=== PATIENT | male | born 1960 | race Caucasian/White ===

== ENCOUNTER 2017-07-22 13:33 | Emergency (ER) | payer OTHER ==
[~2017-07-22] VITALS: Ht 182.9 cm; Wt 95.3 kg
--- NOTE | 2017-07-22 14:36 | ED GI/GU/ABDOMINAL COMPLAINT ---
History of Present Illness General Chief Complaint: Low Back Pain/Injury Stated Complaint: LBP ? KIDNEY STONES Source: patient, old records Exam Limitations: no limitations Vital Signs & Intake/Output Vital Signs & Intake/Output Vital Signs Date Time Temp Pulse Resp B/P B/P Pulse O2 O2 Flow FiO2 Mean Ox Delivery Rate 07/22 1717 98.2 70 16 119/83 100 Room Air 07/22 1516 Room Air 07/22 1408 98.9 94 18 112/70 97 Room Air Allergies Coded Allergies: No Known Allergies (07/22/17) Reconcile Medications Amoxicillin 500 MG TABLET 1 TAB PO TID BRONCHITIS Ondansetron (Zofran Odt) 4 MG TAB.RAPDIS 1 TAB SL TID PRN NAUSEA Oxycodone HCl/Acetaminophen (Percocet 5-325 MG Tablet) 5 MG-325 MG TABLET 1-2 TAB PO Q6P PRN PAIN Tamsulosin HCl (Flomax) 0.4 MG CAP.ER.24H 1 CAP PO DAILY KIDNEY STONE Triage Note: RECEIVED 56 YO NALE WITH HX OF KIDNEY STONES, C/O LEFT FLANK AREA PAIN, STARTED TUESDAY NIGHT. PAIN CAME BACK INTENSLY THIS AM. PT MAY HAVE URINATED AT LEAST 2 STONES, ONE TODAY AND ONE TUESDAY. Triage Nurses Notes Reviewed? yes HPI: On Tuesday patient developed left upper quadrant pain that radiated to his left flank. The pain was severe and intense. Pain similar to a prior episode of kidney stones. Patient felt slightly nauseous. Patient states that since then the pain has improved however has not gone away entirely. Patient is no longer nauseous. Patient has not seen a urologist in the past few years. Patient denies any chest pain or shortness of breath. The pain is cramping in nature. There are no aggravating or mitigating factors. The pain was 8 out of 10 but is currently a 4 out of 10. Past History Travel History Traveled to [place] past 21 day No Medical History Any Pertinent Medical History? see below for history Neurological: NONE EENT: NONE Cardiovascular: NONE Respiratory: NONE Gastrointestinal: NONE Hepatic: KIDNEY STONES Renal: nephrolithiasis Musculoskeletal: NONE Psychiatric: NONE Endocrine: NONE Blood Disorders: NONE Cancer(s): NONE Surgical History Surgical History: non-contributory Psychosocial History What is your primary language Syrian Tobacco Use: Never used ETOH Use: denies use Illicit Drug Use: denies illicit drug use Family History Hx Contributory? No Review of Systems Review of Systems Constitutional: Reports: no symptoms. EENTM: Reports: no symptoms. Respiratory: Reports: no symptoms. Cardiovascular: Reports: no symptoms. GI: Reports: see HPI, abdominal pain. Genitourinary: Reports: no symptoms. Musculoskeletal: Reports: see HPI, back pain. Skin: Reports: no symptoms. Neurological/Psychological: Reports: no symptoms. Hematologic/Endocrine: Reports: no symptoms. Immunologic/Allergic: Reports: no symptoms. All Other Systems: Reviewed and Negative Physical Exam Physical Exam General Appearance: well developed/nourished, alert, awake, mild distress Head: atraumatic, normal appearance Eyes: Bilateral: PERRL, EOMI. Ears, Nose, Throat, Mouth: hearing grossly normal, moist mucous membrane Neck: normal inspection, supple, full range of motion Respiratory: normal breath sounds, chest non-tender, no respiratory distress, lungs clear Cardiovascular: regular rate/rhythm, normal peripheral pulses Gastrointestinal: normal bowel sounds, soft, non-tender, no organomegaly Back: normal inspection, normal range of motion, NO CVA TENDERNESS Extremities: normal range of motion Neurologic/Psych: no motor/sensory deficits, awake, alert, oriented x 3, normal mood/affect Skin: intact, normal color, warm/dry Core Measures ACS in differential dx? No Sepsis Present: No Sepsis Focused Exam Completed? No Progress Differential Diagnosis: pancreatitis, ureterolithiasis, urinary retention, UTI/ pyelo Plan of Care: Orders Procedure Date/time Status LIPASE 07/22 1436 Complete COMPREHENSIVE METABOLIC PANEL 07/22 1436 Complete CBC WITHOUT DIFFERENTIAL 07/22 1436 Complete AMYLASE 07/22 1436 Complete URINALYSIS 07/22 1414 Complete Laboratory Tests 07/22/17 1526: Anion Gap 10, Estimated GFR > 60, BUN/Creatinine Ratio 18.9, Glucose 100 H, Calcium 9.0, Total Bilirubin 0.6, AST 17, ALT 31, Alkaline Phosphatase 82, Total Protein 6.8, Albumin 3.6, Globulin 3.2, Albumin/Globulin Ratio 1.1, Amylase 80, Lipase 82, CBC w Diff NO MAN DIFF REQ, RBC 4.45 L, MCV 86.7, MCH 29.5, MCHC 34.1, RDW 15.0 H, MPV 7.5, Gran % 65.8, Lymphocytes % 20.5, Monocytes % 8.9, Eosinophils % 4.4, Basophils % 0.4, Absolute Granulocytes 6.6 H, Absolute Lymphocytes 2.1, Absolute Monocytes 0.9 H, Absolute Eosinophils 0.4, Absolute Basophils 0 07/22/17 1417: Urine Color YEL, Urine Clarity CLEAR, Urine pH 6.0, Ur Specific [place] 1.025, Urine Protein NEG, Urine Ketones NEG, Urine Nitrite NEG, Urine Bilirubin NEG, Urine Urobilinogen 0.2, Ur Leukocyte Esterase NEG, Ur Microscopic SEDIMENT EXAMINED, Urine RBC 10-15 H, Urine WBC RARE, Urine Mucus MOD H, Urine Hemoglobin MOD H, Urine Glucose NEG Diagnostic Imaging: Viewed by Me: CT Scan. Discussed w/RAD: CT Scan. Radiology Impression: PATIENT: GIRISH AGUIRRE PRESENT AGE: 56 PATIENT ACCOUNT NO: [id number] : 62 LOCATION: [facility] ORDERING PHYSICIAN: Rene Adames MD SERVICE DATE: 07/22/17 EXAM TYPE: CAT - CT ABD & PELVIS W/O IV CONTRAS EXAMINATION: CT ABDOMEN AND PELVIS WITHOUT CONTRAST CLINICAL INFORMATION: Left flank pain COMPARISON: None TECHNIQUE: Multidetector volumetric imaging was performed from the superior aspect of the liver through the pubic symphysis. Sagittal and coronal reformatted images were obtained on the technologist's workstation. DLP: 544 mGy -cm FINDINGS: LUNG BASES: The visualized lung bases are clear. The visualized cardiac structures are unremarkable. There are prominent lymph nodes along the course of the distal esophagus. For instance, there is a short axis I.5 cm node seen on series 2 image 7. LIVER, GALLBLADDER, AND BILIARY TREE: The liver is normal in size, shape, and attenuation. No focal hepatic lesion or biliary ductal dilatation is present. The gallbladder is unremarkable with no evidence of radiopaque gallstones, gallbladder wall thickening, or obvious pericholecystic inflammatory changes. PANCREAS: Unremarkable. SPLEEN: Unremarkable. ADRENAL GLANDS: Unremarkable. KIDNEYS AND URETERS: The kidneys are normal in size, shape, and attenuation. Mild left hydronephrosis. There is a 0.3 cm proximal left ureteral calculus which is obstructing. The distal ureter is decompressed. There is no right-sided hydronephrosis. There is a right lower pole 0.7 cm calculus which is 8 cm from the posterior axillary line. This measures 1000 Hounsfield units. BLADDER: Unremarkable. GASTROINTESTINAL TRACT: The stomach is unremarkable. The small bowel is normal in caliber. There is no obstruction. No colonic wall thickening or inflammatory change. There is a moderate colonic stool burden. Diverticulosis of the descending and sigmoid colon without evidence of diverticulitis. No free air or free fluid. ABDOMINAL WALL: No significant hernia is appreciated. LYMPH NODES: As mentioned above, there are prominent lymph nodes in the chest along the course of the mid to distal esophagus. Retrocrural lymph node on the right measures 0.9 cm short axis , series 2 image 19. There is a portacaval node with short axis dimension of 0.9 cm. The remaining retroperitoneal and pelvic lymph nodes are within normal limits. VASCULAR: Unremarkable. PELVIC VISCERA: The prostate and seminal vesicles are unremarkable. OSSEOUS STRUCTURES: Degenerative changes at L5-S1. Pars defects with grade 1 anterolisthesis. Disc space narrowing with vacuum disc phenomenon. Additional vacuum disc phenomenon at L4-L5. IMPRESSION: 1. Mild left hydroureteronephrosis with a proximal left ureteral 0.3 cm calculus. 2. Nonobstructing right lower pole 0.7 cm calculus. 3. Lymphadenopathy in the chest along the course of the esophagus. This is nonspecific, but malignancy must be a consideration. No definite lymphadenopathy in abdomen/pelvis. Dedicated chest CT may be obtained to further evaluate the structures in the chest. This critical result was discussed with Rene Adames MD by telephone at 07/22/2017 3:17 PM and it was ascertained that the content and urgency of the report was understood at the time of direct communication. DICTATED BY: Kem Gray MD DATE/TIME DICTATED:07/22/171502 VEGETABLE FARM MANAGER:JUMA DATE/TIME TRANSCRIBED:07/22/171502 CONFIDENTIAL, DO NOT COPY WITHOUT APPROPRIATE AUTHORIZATION. <Electronically signed in Other Vendor System> SIGNED BY: Kem Gray MD 07/22/17 1520, PATIENT: GIRISH AGUIRRE PRESENT AGE: 56 PATIENT ACCOUNT NO: [id number] : 62 LOCATION: [facility] ORDERING PHYSICIAN: Rene Adames MD SERVICE DATE: 07/22/17-152 EXAM TYPE: CAT - CT CHEST W IV CONTRAST EXAMINATION: CT CHEST WITH CONTRAST CLINICAL INFORMATION: Follow-up abnormal exam. Follow-up lymphadenopathy. COMPARISON: Same day abdominal and pelvic CT. TECHNIQUE: Contiguous axial thin section helical images of the chest were performed following the administration of 95 mL of intravenous Optiray 320. The data set was reformatted in the coronal and sagittal planes and reviewed on an independent workstation. DLP: 396 mGy-cm. FINDINGS: The heart is of normal size. There is no pericardial effusion. There are multiple mediastinal lymph nodes. There is a superior left paratracheal lymph node on image 100/520 measuring approximately 3.4 x 2.5 cm. There is a right paratracheal lymph node on image 172 measuring 2.9 x 2.1 cm. There is a subcarinal lymph node on image 263 measuring approximately 5.1 x 2.6 cm. There are bilateral hilar lymph nodes. The largest right hilar lymph node is on image 239 measuring 2.3 x 1.9 cm. The largest left hilar lymph node measures 1.6 x 1.0 cm. Review of lung windows demonstrates that there are neither pleural effusions nor pneumothoraces. There are no consolidations. Within the right lower lobe on image 270, there is a 5 mm nodule. There is mild left apical scarring. Within the periphery of the left upper lobe on image 119, there is a 3 mm nodular density. Within the left lower lobe adjacent to the major fissure on image 262, there is an approximately 4 mm nodular density. The visualized upper abdomen demonstrates that the liver is of normal size and attenuation. Within the dome of the right lobe of the liver anteriorly on image 401, there is a 6 mm low- attenuation lesion which is too small to fully characterize. Within the dome of the left lobe of the liver on image 370, there is an 8mm low-attenuation focus which is too small to fully characterize. Within the inferior right lobe on image 503, there are 2 ill-defined low-attenuation lesions measuring approximately 9 mm an 11 mm respectively. Normal adrenal glands are identified. Bone windows: Neither sclerotic nor lytic bone lesions are identified. IMPRESSION: Multiple mediastinal and hilar lymph nodes. The appearance is nonspecific, though worrisome for neoplasm, such as lymphoma. Consider PET/CT for further tissue characterization. Bilateral subcentimeter nodules and nodular densities. The largest measures 5 mm within the right lower lobe. Nonspecific low-attenuation lesions within the liver. DICTATED BY: Denys Bustillos MD DATE/ TIME DICTATED:07/22/171629 VEGETABLE FARM MANAGER:JUMA DATE/TIME TRANSCRIBED: 07/22/171629 CONFIDENTIAL, DO NOT COPY WITHOUT APPROPRIATE AUTHORIZATION. < Electronically signed in Other Vendor System> SIGNED BY: Denys Bustillos MD 07/22/17 1646 Initial ED EKG: none Comments: Patient has been updated on CAT scan findings. Patient states that he has had sinus congestion and postnasal drip lately. Patient is requesting a prescription for amoxicillin. Patient will follow-up with his primary care physician regarding the CAT scan finding of lymphadenopathy and he promises to return for any concerns. Departure Departure Disposition: HOME OR SELF CARE Condition: Stable Clinical Impression Primary Impression: Kidney stone on left side Secondary Impressions: Lymphadenopathy Referrals: Albert CHARLES,Griselda Fajardo MD,Saba Conrteras III (PCP/Family) Additional Instructions: Follow-up with your primary care physician regarding the swollen lymph node in your chest. Take amoxicillin as prescribed. Take Percocet as needed for the pain. Take Flomax as directed. Take Zofran as needed for nausea. Follow up with Dr. Price from urology. Return if symptoms worsen or for any concerns. Departure Forms: Customer Survey General Discharge Information Prescriptions: Current Visit Scripts Amoxicillin 1 TAB PO TID #30 TAB Oxycodone HCl/Acetaminophen (Percocet 5-325 MG Tablet) 1-2 TAB PO Q6P PRN PAIN #20 TAB Tamsulosin HCl (Flomax) 1 CAP PO DAILY #14 CAP Ondansetron (Zofran Odt) 1 TAB SL TID PRN NAUSEA #10 TAB
--- NOTE | 2017-07-22 15:20 | CT SCAN REPORT ---
EXAMINATION: CT ABDOMEN AND PELVIS WITHOUT CONTRAST CLINICAL INFORMATION: Left flank pain COMPARISON: None TECHNIQUE: Multidetector volumetric imaging was performed from the superior aspect of the liver through the pubic symphysis. Sagittal and coronal reformatted images were obtained on the technologist's workstation. DLP: 544 mGy-cm FINDINGS: LUNG BASES: The visualized lung bases are clear. The visualized cardiac structures are unremarkable. There are prominent lymph nodes along the course of the distal esophagus. For instance, there is a short axis I.5 cm node seen on series 2 image 7. LIVER, GALLBLADDER, AND BILIARY TREE: The liver is normal in size, shape, and attenuation. No focal hepatic lesion or biliary ductal dilatation is present. The gallbladder is unremarkable with no evidence of radiopaque gallstones, gallbladder wall thickening, or obvious pericholecystic inflammatory changes. PANCREAS: Unremarkable. SPLEEN: Unremarkable. ADRENAL GLANDS: Unremarkable. KIDNEYS AND URETERS: The kidneys are normal in size, shape, and attenuation. Mild left hydronephrosis. There is a 0.3 cm proximal left ureteral calculus which is obstructing. The distal ureter is decompressed. There is no right-sided hydronephrosis. There is a right lower pole 0.7 cm calculus which is 8 cm from the posterior axillary line. This measures 1000 Hounsfield units. BLADDER: Unremarkable. GASTROINTESTINAL TRACT: The stomach is unremarkable. The small bowel is normal in caliber. There is no obstruction. No colonic wall thickening or inflammatory change. There is a moderate colonic stool burden. Diverticulosis of the descending and sigmoid colon without evidence of diverticulitis. No free air or free fluid. ABDOMINAL WALL: No significant hernia is appreciated. LYMPH NODES: As mentioned above, there are prominent lymph nodes in the chest along the course of the mid to distal esophagus. Retrocrural lymph node on the right measures 0.9 cm short axis, series 2 image 19. There is a portacaval node with short axis dimension of 0.9 cm. The remaining retroperitoneal and pelvic lymph nodes are within normal limits. VASCULAR: Unremarkable. PELVIC VISCERA: The prostate and seminal vesicles are unremarkable. OSSEOUS STRUCTURES: Degenerative changes at L5-S1. Pars defects with grade 1 anterolisthesis. Disc space narrowing with vacuum disc phenomenon. Additional vacuum disc phenomenon at L4-L5. IMPRESSION: 1. Mild left hydroureteronephrosis with a proximal left ureteral 0.3 cm calculus. 2. Nonobstructing right lower pole 0.7 cm calculus. 3. Lymphadenopathy in the chest along the course of the esophagus. This is nonspecific, but malignancy must be a consideration. No definite lymphadenopathy in abdomen/pelvis. Dedicated chest CT may be obtained to further evaluate the structures in the chest. This critical result was discussed with Rene Adames MD by telephone at 07/22/2017 3:17 PM and it was ascertained that the content and urgency of the report was understood at the time of direct communication.
[2017-07-22 16:01] LABS: ABSOLUTE BASOPHIL COUNT 0 /CUMM (0.0-0.2); ABSOLUTE EOSINOPHIL COUNT 0.4 /CUMM (0.0-0.7); ABSOLUTE GRANULOCYTE CT 6.6 /CUMM (1.4-6.5); ABSOLUTE LYMPH COUNT 2.1 /CUMM (1.2-3.4); ABSOLUTE MONOCYTE COUNT 0.9 /CUMM (0.10-0.60); BASOPHIL % 0.4 % (0.0-2.0); EOSINOPHIL % 4.4 % (0-5); GRANULOCYTE % 65.8 % (42.2-75.2); HEMATOCRIT 38.5 % (42-52); MEAN CORPUSCULAR HGB 29.5 PG (27.0-31.0); MEAN CORPUSCULAR HGB CONC 34.1 G/DL (33.0-37.0); MEAN CORPUSCULAR VOLUME 86.7 FL (80.0-94.0); MEAN PLATELET VOLUME 7.5 FL (7.4-10.4); PLATELET COUNT 265 /CUMM (130-400); RED BLOOD CELL CT 4.45 /CUMM (4.70-6.10); WHITE BLOOD CELL COUNT 10.1 /CUMM (4.8-10.8)
--- NOTE | 2017-07-22 16:46 | CT SCAN REPORT ---
EXAMINATION: CT CHEST WITH CONTRAST CLINICAL INFORMATION: Follow-up abnormal exam. Follow-up lymphadenopathy. COMPARISON: Same day abdominal and pelvic CT. TECHNIQUE: Contiguous axial thin section helical images of the chest were performed following the administration of 95 mL of intravenous Optiray 320. The data set was reformatted in the coronal and sagittal planes and reviewed on an independent workstation. DLP: 396 mGy-cm. FINDINGS: The heart is of normal size. There is no pericardial effusion. There are multiple mediastinal lymph nodes. There is a superior left paratracheal lymph node on image 100/520 measuring approximately 3.4 x 2.5 cm. There is a right paratracheal lymph node on image 172 measuring 2.9 x 2.1 cm. There is a subcarinal lymph node on image 263 measuring approximately 5.1 x 2.6 cm. There are bilateral hilar lymph nodes. The largest right hilar lymph node is on image 239 measuring 2.3 x 1.9 cm. The largest left hilar lymph node measures 1.6 x 1.0 cm. Review of lung windows demonstrates that there are neither pleural effusions nor pneumothoraces. There are no consolidations. Within the right lower lobe on image 270, there is a 5 mm nodule. There is mild left apical scarring. Within the periphery of the left upper lobe on image 119, there is a 3 mm nodular density. Within the left lower lobe adjacent to the major fissure on image 262, there is an approximately 4 mm nodular density. The visualized upper abdomen demonstrates that the liver is of normal size and attenuation. Within the dome of the right lobe of the liver anteriorly on image 401, there is a 6 mm low-attenuation lesion which is too small to fully characterize. Within the dome of the left lobe of the liver on image 370, there is an 8mm low-attenuation focus which is too small to fully characterize. Within the inferior right lobe on image 503, there are 2 ill-defined low-attenuation lesions measuring approximately 9 mm an 11 mm respectively. Normal adrenal glands are identified. Bone windows: Neither sclerotic nor lytic bone lesions are identified. IMPRESSION: Multiple mediastinal and hilar lymph nodes. The appearance is nonspecific, though worrisome for neoplasm, such as lymphoma. Consider PET/CT for further tissue characterization. Bilateral subcentimeter nodules and nodular densities. The largest measures 5 mm within the right lower lobe. Nonspecific low-attenuation lesions within the liver.
[2017-07-22] MEDS ORDERED: PERCOCET 5-3251 EACH PO (17:09)
[2017-07-22] MEDS ORDERED: FLOMAX0.4 M1 PO (17:09)
[2017-07-22] MEDS ORDERED: AMOXICILLIN500 M3 PO (17:09)
[2017-07-22] MEDS ORDERED: ZOFRAN ODT4 M1 SL (17:09)
[2017-07-22 17:17] VITALS: BP 119/83
== END 2017-07-22 17:29 ==
LOC: ERH 13:33
PROVIDERS: Emergency Medicine
DX: N20.0 Calculus of kidney (principal); R59.1 Generalized enlarged lymph nodes
CPT/HCPCS: 74176; 81001; 96374; J1885